=== PATIENT | female | born 1975 | race Caucasian/White ===

== ENCOUNTER 2025-01-26 16:03 | Observation (INO) ==
--- NOTE | 2025-01-26 16:52 | DR.EXTPAIN ---
HPI Time seen Time Seen by Provider: 01/26/25 16:23 PCP Primary Care Physician: jeff Complaint/Symptoms Chief Complaint Doctor Comments: 49 yo F, hx NIDDM, diagnosed with cellulitis of RLE 12d ago, finished a course of unknown abx, switched to clinda and doxy 2d ago, redness/swellling and pain of RLE has continued to progress. Denies fever/chills. Denies dyspnea. Denies other complaints. Chief Complaint:: cellulitis to the right leg not responding to treatment. more blisters and redness. area involved is the right lower leg from ankle up to just below the knee. pain is worse on the back side of the leg Self Treatment fo Chief Complaint: 01/16/25 seen in [place] and treated with antibiotics and not getting better. has also seen medical specialist at dr[facility] aguilar and was told if not better to come COVID-19 Coronavirus risk:travel/contact w/high risk person: No Has patient experienced Coronavirus symptoms: No Source History Provided: Patient Mode of arrival Mode of Arrival: Ambulatory Timing Onset of Chief Complaint: 01/15/25 PMH PMH Past Medical History: Yes Past Medical History: Diabetes and Hypothyroidism Past Surgical History: Yes Surgical History: Cholecystectomy Family History History of Family Medical Conditions: Yes Family Medical History: Diabetes Mellitus, Cancer, [place], Coronary Artery Disease and Hypertension Social History Alcohol Use: None Do you use any recreational Drugs:: No Lives With: Family Lives Where: Home Travel Risk Coronavirus risk:travel/contact w/high risk person: No Has patient experienced Coronavirus symptoms: No Infectious screening In the last 2 months have you had wt loss of >10#?: NO Have you had fever, night sweats or hemotysis?: No Have you traveled outside the country in the last 6 months?: No Isolation: Standard ROS Review of Systems Integumentary: Other (RLE redness/swelling/pain) All Other Systems: Reviewed and Negative PE Vital Signs Vitals: Vital Signs Temperature 97.4 F Pulse Rate 83 Respiratory Rate 18 Blood Pressure 138/80 O2 Sat by Pulse Oximetry 94 General Limitations: No Limitations General Appearance: Alert and In No Apparent Distress Head Head Exam: Normal Inspection Eyes Eye exam: Normal Appearance ENT ENT Exam: Normal Exam Neck Neck Exam: Normal Inspection Chest Chest Inspection: Normal Inspection Respiratory Respiratory Exam: Normal Lung Sounds Bilat Cardiovascular Cardiovascular Exam: Regular Rate and Normal Rhythm Lower Extremities Lower Leg Exam: Other (RLE: erythema/swelling, warm to the touch, from foot to knee, consistent with cellulitis. 4 intact bullae on lateral side of lower leg.) Back Back Exam: Normal Inspection Neurological Neurological Exam: Alert, Oriented X3 and CN II-XII Intact Psychiatric Psychiatric Exam: Normal Affect and Normal Mood Skin Skin Exam: Warm, Dry, Intact and Normal Color ROR Labs Reviewed 01/26/25 16:51 01/26/25 16:51 Laboratory: WBC 8.7 X10^3/uL (3.6-10.0) 01/26/25 16:51 RBC 4.87 X10^6/uL (3.5-5.4) 01/26/25 16:51 Hgb 11.9 g/dL (12.0-16.0) L 01/26/25 16:51 Hct 37.8 % (36.0-47.0) 01/26/25 16:51 MCV 77.6 fL (80.0-100.0) L 01/26/25 16:51 MCH 24.4 pg (27.0-34.0) L 01/26/25 16:51 MCHC 31.5 g/dL (33.0-35.0) L 01/26/25 16:51 RDW 17.1 % (11.6-16.5) H 01/26/25 16:51 Plt Count 224 X10^3/uL (150.0-450.0) 01/26/25 16:51 MPV 7.5 fL (7.4-11.0) 01/26/25 16:51 Neut % (Auto) 70.0 % (42.0-75.0) 01/26/25 16:51 Lymph % (Auto) 22.0 % (21.0-51.0) 01/26/25 16:51 [place] % (Auto) 4.5 % (0.0-13.0) 01/26/25 16:51 Eos % (Auto) 2.8 % (0.9-2.9) 01/26/25 16:51 Baso % (Auto) 0.7 % (0.2-1.0) 01/26/25 16:51 Neut # (Auto) 6.1 x10^3/uL (2.2-4.8) H 01/26/25 16:51 Lymph # (Auto) 1.9 X10^3/uL (1.3-2.9) 01/26/25 16:51 [place] # (Auto) 0.4 x10^3/uL (0.3-0.8) 01/26/25 16:51 Eos # (Auto) 0.2 x10^3/uL (0.0-0.2) 01/26/25 16:51 Baso # (Auto) 0.1 X10^3/uL (0.0-0.1) 01/26/25 16:51 Absolute Nucleated RBC 0.1 /100WBC 01/26/25 16:51 Sodium 138 mmol/L (136-145) 01/26/25 16:51 Corrected Sodium TNP 01/26/25 16:51 Potassium 4.3 mmol/L (3.5-5.1) 01/26/25 16:51 Chloride 100 mmol/L (98-107) 01/26/25 16:51 Carbon Dioxide 30.7 mmol/L (21-32) 01/26/25 16:51 BUN 8 mg/dL (7-18) 01/26/25 16:51 Creatinine 0.77 mg/dL (0.55-1.02) 01/26/25 16:51 Est GFR (MDRD) Af Amer > 60 (>60) 01/26/25 16:51 Est GFR (MDRD) Non-Af > 60 (>60) 01/26/25 16:51 Glucose 93 mg/dL (65-99) 01/26/25 16:51 Lactic Acid 1.0 mmol/L (0.4-2.0) 01/26/25 16:52 Calcium 8.8 mg/dL (8.5-10.1) 01/26/25 16:51 Opioid Opioid Risk Tool Age (Raphael box if 16-45): No History of Preadolescent Sexual Abuse: No Total: 0 Total Score Risk Category: Low Risk Copyright: Augustus MERA predicting aberrant behaviors Discharge Plan Diagnosis Discharge Problem: Cellulitis of leg, right Discharge Plan Patient Disposition: 09 ADMITTED INPATIENT Condition: Stable Prescriptions: No Action doxycycline monohydrate 100 mg tablet 100 mg PO BID levothyroxine 137 mcg tablet 137 mcg PO QDAY clindamycin HCl 150 mg capsule 450 mg PO losartan 25 mg tablet 25 mg PO QDAY gabapentin 300 mg capsule 300 mg PO BID rosuvastatin 5 mg tablet 5 mg PO QPM hydrochlorothiazide 12.5 mg tablet 12.5 mg PO QDAY Zepbound 2.5 mg/0.5 mL pen injector 2.5 mg subcut QWEEK 30 Days Qty: 2 0RF Rx Instructions: for 4 weeks Health Concerns: Post Hospitalization: new medications and changes needed to prevent readmission or further decline. Pt educated and given instructions on all concerns. Plan of Treatment: Continue with present treatment and follow up plan. Pt is to keep follow up appointment as instructed and take medications as ordered. Follow ups/Referrals Follow ups/Referrals: Norbert Aguilar MD [Primary Care Provider, MEDICAL] - 3 days Instructions Stand Alone Forms: Find Help Web Site, Post Hospital Follow Up Care Print Language: IRISH Provider Note Additional Notes pt accepted by Dr Mcarthur at this time.
[2025-01-26 17:05] LABS: MEAN PLATELET VOLUME 7.5 fL (7.4-11.0); RED CELL DISTRIBUTION WIDTH 17.1 % (11.6-16.5)
[2025-01-26 17:17] LABS: CREATININE 0.77 mg/dL (0.55-1.02); eGFR NON BLACK RACES > 60 (>60)
[2025-01-26] MEDS: ZOSYN VIAL 3.375 GRAMS 3.375 G in NS 100 ML IV 100 ML IV SCH (17:22)
[2025-01-26] MEDS: VANCOMYCIN IV *PREMIX 1 G/200 ML BAG 1 G/200 ML PIGGYBACK IV SCH (17:22)
--- NOTE | 2025-01-26 17:36 | VAS ---
EXAM: RIGHT LOWER EXTREMITY VENOUS DOPPLER ULTRASOUND HISTORY: Leg pain. Swelling. TECHNIQUE: The lower extremity veins were interrogated with a high-frequency linear transducer, employing grayscale imaging, duplex Doppler and color flow Doppler imaging. COMPARISON: None available. FINDINGS: There is no loss of compressibility, no loss of intraluminal color flow Doppler signal, and no loss of intraluminal duplex Doppler signal within the common femoral vein, superficial femoral vein, popliteal vein, and posterior tibial vein. The findings are inconsistent with deep venous thrombosis in these regions. There is no evidence for luminal thrombosis of the saphenous vein or superficial venous system. No abnormal fluid collection reminiscent of a Wooten's cyst is seen in the popliteal fossa. No evidence for gross inguinal lymphadenopathy is seen. Note: DVT could be missed early in the disease when clot burden is minimal. For patients with moderate and high pretest probability of DVT and negative ultrasound, the [employer] clinical guidelines recommend testing with a d-dimer assay or repeat ultrasound in 5-7 days. If symptoms worsen, the Society of radiologists in ultrasound recommend repeating ultrasound even earlier. IMPRESSION: 1. No evidence for DVT or SVT seen. 2. No abnormal fluid collection or Wooten's cyst seen. THIS IS AN ELECTRONICALLY VERIFIED FINAL REPORT 01/26/2025 5:33 PM - Electronically signed by Abby Plata MD
[2025-01-26] MEDS ORDERED: MORPHINE SULFATE INJ 2 MG INJ IVP PRN (18:03)
[2025-01-26] MEDS ORDERED: PATIENT'S HOME MEDICATION (Losartan 25 mg tablet) PO SCH (18:15)
[2025-01-26] MEDS: CONSULT PHARMACY - POTASSIUM & MAGNESIUM XX SCH (19:29)
[2025-01-26] MEDS ORDERED: ROSUVASTATIN 5 MG PO SCH (21:00)
[2025-01-26] MEDS: CRESTOR TAB 10 MG PO SCH (21:32)
[2025-01-26] MEDS: NEURONTIN CAP 300 MG PO SCH (21:33)
[2025-01-26] MEDS: COZAAR PO SCH (21:33)
[2025-01-26] MEDS: NS 1,000 ML IV 1,000 ML IV SCH (21:33)
[2025-01-26] MEDS: VANCOMYCIN HCL 1 G in D5W 250 ML IV 250 ML IV ONE (21:50)
[2025-01-26] MEDS: NORCO 5/325 MG TAB PO PRN (21:51)
[2025-01-27] MEDS: ZOSYN VIAL 3.375 GRAMS 3.375 G in NS 100 ML IV 100 ML IV SCH (05:31)
[2025-01-27] MEDS: NS 250 ML IV 25 ML IV PRN (05:36)
[2025-01-27 05:56] LABS: MEAN PLATELET VOLUME 7.6 fL (7.4-11.0); RED CELL DISTRIBUTION WIDTH 17.2 % (11.6-16.5)
[2025-01-27 06:14] LABS: COR CA(FOR HYPOALB) 9.5 mg/dL (8.5-10.1); COR NA(FOR HYPERGLY) 139 mmol/L (136-145); CREATININE 0.79 mg/dL (0.55-1.02); eGFR NON BLACK RACES > 60 (>60)
[2025-01-27] MEDS: HYDROCHLOROTHIAZIDE 12.5 MG CAP PO SCH (09:17)
[2025-01-27] MEDS: VANCOMYCIN IV *PREMIX 2 G/400 ML BAG 2 G/400 ML PIGGYBACK IV SCH (14:25)
[2025-01-27] MEDS: LOVENOX INJ 40 MG SYR SC SCH (15:07)
[2025-01-28 05:53] LABS: MEAN PLATELET VOLUME 7.7 fL (7.4-11.0); RED CELL DISTRIBUTION WIDTH 17.5 % (11.6-16.5)
[2025-01-28 06:04] LABS: COR CA(FOR HYPOALB) 9.6 mg/dL (8.5-10.1); COR NA(FOR HYPERGLY) 140 mmol/L (136-145); CREATININE 0.76 mg/dL (0.55-1.02); eGFR NON BLACK RACES > 60 (>60)
[2025-01-28] MEDS: VANCOMYCIN IV *PREMIX 2 G/400 ML BAG 2 G/400 ML PIGGYBACK IV SCH (09:23)
[2025-01-28 20:54] LABS: CREATININE 0.81 mg/dL (0.55-1.02)
[2025-01-28] MEDS: PHARMACY COMMENT IV NR (22:46)
[2025-01-29] MEDS: VANCOMYCIN IV *PREMIX 1.75 G/350 ML BAG 1.75 G/350 ML PIGGYBACK IV SCH (02:09)
[2025-01-29 07:02] LABS: MEAN PLATELET VOLUME 7.8 fL (7.4-11.0); RED CELL DISTRIBUTION WIDTH 16.8 % (11.6-16.5)
[2025-01-29 07:12] LABS: COR CA(FOR HYPOALB) 9.5 mg/dL (8.5-10.1); CREATININE 0.74 mg/dL (0.55-1.02); eGFR NON BLACK RACES > 60 (>60)
[2025-01-29] MEDS: TYLENOL 325 MG TAB PO PRN (08:35)
--- NOTE | 2025-01-29 16:00 | NOTE.SOAP ---
Soap Note Note for Day of Date of Exam: 01/29/25 Subjective Data Subjective Data: RLE still swollen and erythematous. Pain is improved. She is able to move it easier. Denies any overnight events. Objective Data Objective Data: Well-developed, morbidly obese female in no acute distress. Reclined in bed with hearing grossly normal and head NCAT. Heart regular rate and rhythm, clear lungs, strong speech. Right lower extremity with blisters at the superolateral calf along with diffuse erythema and warmth. No drainage. Assessment Assessment: RLE cellulitis Benign essential hypertension Acquired hypothyroidism Morbid obesity Plan Plan: Continue antibiotics for now. Continue current medications. Patient overall stable.
[2025-01-30 06:40] LABS: MEAN PLATELET VOLUME 7.8 fL (7.4-11.0); RED CELL DISTRIBUTION WIDTH 16.5 % (11.6-16.5)
[2025-01-30 06:56] LABS: COR CA(FOR HYPOALB) 9.6 mg/dL (8.5-10.1); CREATININE 0.71 mg/dL (0.55-1.02); eGFR NON BLACK RACES > 60 (>60)
[2025-01-30] MEDS: ULTRAM PO PRN (08:15)
[2025-01-30] MEDS: PHARMACY COMMENT IV NR (14:30)
--- NOTE | 2025-01-30 15:03 | NOTE.SOAP ---
Soap Note Note for Day of Date of Exam: 01/30/25 Subjective Data Subjective Data: Right leg is less tender, erythematous, and swollen. Nurses marked it today. No acute events overnight. Blood pressure remains elevated and O2 does seem to drop when she is sleeping. Has a history of sleep apnea but has not worn her CPAP. Objective Data Objective Data: Morbidly obese female in no acute distress. Head NCAT with hearing grossly normal. Heart regular rate and rhythm but distant. Speech is clear and unlabored. Bowel sounds are present. RLE does appear to be improving. Blisters intact. Assessment Assessment: RLE cellulitis Benign essential hypertension Acquired hypothyroidism Morbid obesity Plan Plan: Continue respiratory support. Long review of sleep apnea and risk if she remains untreated. Continue current antibiotics. Discharge planning will need to be made about IV versus p.o. Wound cultures negative to date.
[2025-01-30 15:13] LABS: CREATININE 0.76 mg/dL (0.55-1.02)
[2025-01-30] MEDS: FLONASE NASAL SPRAY ENOSTRIL SCH (17:21)
[2025-01-31 06:02] LABS: MEAN PLATELET VOLUME 7.6 fL (7.4-11.0); RED CELL DISTRIBUTION WIDTH 16.9 % (11.6-16.5)
[2025-01-31 06:09] LABS: COR CA(FOR HYPOALB) 9.6 mg/dL (8.5-10.1); CREATININE 0.71 mg/dL (0.55-1.02); eGFR NON BLACK RACES > 60 (>60)
[2025-01-31] MEDS: VANCOMYCIN IV *PREMIX 1.75 G/350 ML BAG 1.75 G/350 ML PIGGYBACK IV SCH (06:11)
[2025-01-31] MEDS: SEMAGLUTIDE 3 MG PO SCH (09:57)
--- NOTE | 2025-01-31 12:37 | RAD ---
EXAM: Two-view chest HISTORY: Hypoxia COMPARISON: 05/02/2022 FINDINGS: The heart is enlarged. Pulmonary venous congestion is present. No interstitial edema, alveolar edema, alveolar infiltrates, areas of consolidation or pleural effusions identified. Bony thorax is unremarkable. IMPRESSION: Cardiomegaly with pulmonary venous congestion No definite interstitial or alveolar pulmonary edema No acute alveolar infiltrates or areas of consolidation identified THIS IS AN ELECTRONICALLY VERIFIED FINAL REPORT 01/31/2025 12:34 PM - Electronically signed by Duong Ching MD
[2025-01-31 14:01] VITALS: BMI 68.1
[2025-01-31] MEDS: LASIX IVP ONE (15:35)
[2025-02-01 06:15] LABS: RED CELL DISTRIBUTION WIDTH 16.9 % (11.6-16.5)
[2025-02-01 06:23] LABS: MEAN PLATELET VOLUME 8.1 fL (7.4-11.0)
[2025-02-01 06:28] LABS: COR CA(FOR HYPOALB) 9.5 mg/dL (8.5-10.1); CREATININE 0.64 mg/dL (0.55-1.02); eGFR NON BLACK RACES > 60 (>60)
[2025-02-01] MEDS: OMNIPAQUE 350 mg/mL 100 mL BTL IVP NR (15:17)
--- NOTE | 2025-02-01 15:55 | CT ---
EXAM: CT PULMONARY ANGIOGRAM CHEST WITH CONTRAST (PE PROTOCOL) HISTORY: sob; COMPARISON: Chest x-ray dated 01/31/[address] dated 04/30/2022. TECHNIQUE: Axial CT images were obtained through the chest after the intravenous administration of IV contrast. Coronal reformatted images were included. Maximum intensity projection (MIP) images were performed per pulmonary angiogram protocol. Informed written consent was obtained prior to contrast administration. All CT scans at this facility use dose modulation, iterative reconstruction, and/or weight based dosing when appropriate to reduce radiation dose to as low as reasonably achievable. FINDINGS: No evidence of pulmonary embolism. Chronic dilated main pulmonary artery. Stable prominent mediastinal and hilar lymph nodes. No pericardial effusion. Cardiomegaly. Trachea is midline and central airways are patent. Mild respiratory lung motion with air trapping and dependent lung atelectasis. No focal consolidation. No pleural effusion or pneumothorax. No acute osseous findings. Mild thoracic spine degenerative disc disease. No acute findings in the visualized upper abdomen. IMPRESSION: 1. No evidence of pulmonary embolism. No acute findings. 2. Cardiomegaly with chronic dilated main pulmonary artery, suggestive of pulmonary hypertension. 3. Stable prominent mediastinal and hilar lymph nodes. THIS IS AN ELECTRONICALLY VERIFIED FINAL REPORT 02/01/2025 3:52 PM - Electronically signed by Venkat Polanco MD
[2025-02-01] MEDS: OMNIPAQUE 350 mg/mL 100 mL BTL 100 ML ONE (17:05)
[2025-02-01 17:35] LABS: ABG BASE EXCESS 10.1 mmol/L (-2.0-2.0); ABG PH 7.410 (7.35-7.45)
[2025-02-01 17:36] LABS: ABG ALLEN TEST POS; ABG HCO3 36.8 mmol/L (22-26); ABG OXYGEN SATURATION 78.0 % (90-100); ABG PCO2 58.0 mmHg (35.0-45.0); ABG PO2 42.0 mmHg (80.0-100.0)
[2025-02-01] MEDS ORDERED: LASIX ONE (17:57)
[2025-02-01] MEDS: LASIX IVP ONE (17:59)
[2025-02-02 00:33] VITALS: O2SAT 95
[2025-02-02 05:47] LABS: MEAN PLATELET VOLUME 7.7 fL (7.4-11.0); RED CELL DISTRIBUTION WIDTH 17.0 % (11.6-16.5)
[2025-02-02 06:07] LABS: COR CA(FOR HYPOALB) 9.8 mg/dL (8.5-10.1); CREATININE 0.68 mg/dL (0.55-1.02); eGFR NON BLACK RACES > 60 (>60)
[2025-02-02] MEDS ORDERED: CONSULT PHARMACY - POTASSIUM & MAGNESIUM XX SCH (07:00)
[2025-02-02] MEDS: K-DUR TAB 20 MEQ PO ONE (08:53)
[2025-02-02 14:55] VITALS: BP 123/71; PULSE 81; RESP 17; TEMP 97.5
== END 2025-02-02 12:50 | disposition home or self-care (01) ==
LOC: MED/SURG 16:03 → ER 16:03 → MED/SURG 19:31
PROVIDERS: ADMIT Obstetrics & Gynecology Obstetrics; ATTEND Family Medicine
DX: J30.9 Allergic rhinitis, unspecified; R09.02 Hypoxemia; G47.39 Other sleep apnea; M79.661 Pain in right lower leg; E03.8 Other specified hypothyroidism; E83.51 Hypocalcemia; Z68.44 Body mass index [BMI] 60.0-69.9, adult; R06.02 Shortness of breath; E66.01 Morbid (severe) obesity due to excess calories; R79.89 Other specified abnormal findings of blood chemistry; I11.9 Hypertensive heart disease without heart failure; R73.09 Other abnormal glucose; L04.9 Acute lymphadenitis, unspecified; I87.8 Other specified disorders of veins; R60.0 Localized edema; D64.89 Other specified anemias; L03.115 Cellulitis of right lower limb; Z79.899 Other long term (current) drug therapy; R09.89 Other specified symptoms and signs involving the circulatory and respiratory systems